=== PATIENT | female | born 1960 | race Caucasian/White ===

== ENCOUNTER → 2017-02-28 | Outpatient (CLI) | payer MEDICARE, MEDICAID ==
[~2017-02-28] MED LIST: /CIPR75TA OR; /DULO30CA OR; /DULO30CA PO; /PANT40TA OR; /PANT40TA PO; ABIL1TAB11 PO; ABIL5TAB OR; ABIL5TAB PO; ACET65TA OR; ACET65TA PO; AMBI10TA PO; ASPI-101 PO; ASPI81TA83 PO; ATIV1TAB2 PO; BABY81CH OR; BACL10TA PO; BACL10TA2 OR; BACL10TA2 PO; BRIV50TA PO; CARA1SUS OR; CHOL4POW4 PO; COPAXONE SQ; COPAXONE SUBQ; CORE12.5 PO; DEPA500T2 PO; ENOX40SY SC; FOSA70TA PO; GLAT1INJ SC; INSUDET SC; INSULANT SC; INSULIN REG SC; INSULIN SQ; LASI40TA PO; LEVO25TA5 PO; LEVO300T21 PO; LEVO50TA2 OR; LIPI10TA PO; LOPR50TA OR; Lioresal PO; MELA5TAB20 PO; METO10TA2 OR; MS C15TA5 PO; MULTIVIT PO; NEUR100C PO; NEUR300C PO; NEUR400C PO; NEUR800T OR; NICO7DIS4 TD; NOVOLOG100 MG/ML SC; NYSTATIN POWDER TOP; PAIN325T PO; PAME10CA PO; PAME50CA OR; PERC5TAB8 OR; PLAV75TA2 OR; PLAV75TA2 PO; PREG50CA PO; PRIL20CA OR; QUESTRAN PO; SIMV20TA2 OR; SYNT100T OR; TRAD5TAB PO; TRAZ50TA OR; TRAZ50TA PO; VIT D 2000 PO; VITA500T OR; ZOCO40TA OR; ZOCO40TA PO; ZOFR20TA PO; albuterol neb INH; humalog insulin SC; lantus insulin SC; levemir SC; maalox OR; melatonin OR; mucinex PO
--- NOTE | 2017-02-28 13:42 | REP ---
BILATERAL UPPER EXTREMITY DUPLEX DOPPLER ULTRASOUND ARTERIES AND DEEP VENOUS SYSTEMS: Real-time compression and duplex Doppler interrogation of bilateral upper extremity deep vein systems is performed. There is no evidence of deep venous thrombosis bilaterally. On the right diameter of the basilic vein at the level of the humerus is 3 mm and at the level of the forearm and wrist is 2 mm, with median cubital vein measuring 2 mm. Diameter of the right cephalic vein at the level of the humerus is 2 mm and at the level of the antecubital region and forearm is 1 mm, 2 mm at the wrist. On the left, diameter of the basilic vein at the humerus and antecubital region is 2 mm, 1 mm in the forearm, median cubital vein is 2 mm. Left cephalic vein measures 2 mm in diameter at the level of the humerus and antecubital region, 1 mm in the forearm. Normal peak systolic velocities are seen in the axillary, brachial, radial and ulnar arteries bilaterally. There is plaquing and narrowing of both radial and ulnar arteries. Triphasic waveforms are seen in the right axillary, brachial and radial arteries with mild phasic waveform in the right ulnar artery. Right axillary artery measures 2 mm, brachial artery 2 mm, radial and ulnar arteries 1 mm in diameter. On the left biphasic waveforms are seen in the axillary and brachial arteries with mild phasic waveforms in the radial and ulnar arteries. Diameter of the left axillary artery is 6 mm, brachial artery 3 mm and radial and ulnar arteries 1 mm. Signed by Adonis Knight MD 02/28/2017 01:57 P
== END ==
LOC: M RAD 10:11
PROVIDERS: ATTEND Surgery Vascular Surgery
DX: N18.6 End stage renal disease (principal); M79.601 Pain in right arm

== ENCOUNTER 2017-03-23 11:49 | Day surgery (SDC) | payer MEDICARE, MEDICAID ==
[~2017-03-23] VITALS: Ht 139.7 cm; Wt 105.7 kg
[~2017-03-23 11:49] MED LIST changes: -METO10TA2 OR; +METO10TA2 PO; +SODIUM CHLORIDE 0.9% INJ 10 ML SYR IV SCH
[2017-03-23] MEDS ORDERED: NS 1,000 ML IV ONE (12:00)
[2017-03-23] MEDS ORDERED: HEPARIN SOD (PORCINE) 5000 UNITS/ML VIAL As Ordered ONE (13:11)
[2017-03-23] MEDS ORDERED: LIDOCAINE 1% SDV INJ 30 ML VIAL As Ordered ONE (13:11)
[2017-03-23] MEDS ORDERED: BUPIVACAINE HCL 0.5% 30 ML VIAL As Ordered ONE (13:12)
[2017-03-23] MEDS ORDERED: fentaNYL 100 MCG/2 ML INJECTION (J3010) As Ordered ONE (13:53)
[2017-03-23] MEDS ORDERED: PROPOFOL 200 MG/20 ML VIAL As Ordered ONE (13:53)
[2017-03-23] MEDS ORDERED: MIDAZOLAM INJ 2 MG/2 ML VIAL (J2250) As Ordered ONE (13:53)
[2017-03-23] MEDS ORDERED: ESMOLOL INJ 100MG/10ML VIAL As Ordered ONE (14:00)
[2017-03-23 15:20] VITALS: BP 201/82
[2017-03-26] MEDS ORDERED: ATOR40TA75 PO (18:37)
[2017-03-26] MEDS ORDERED: INSUHUMDS SC (18:37)
[2017-03-26] MEDS ORDERED: BISA10SU4 PR (18:40)
[2017-03-26] MEDS ORDERED: MILKSUS PO (18:43)
[2017-03-26] MEDS ORDERED: LEVO25TA5 PO (18:43)
[2017-03-26] MEDS ORDERED: GLUC1KIT SC (18:43)
[2017-03-26] MEDS ORDERED: ENEMENE16 PR (18:43)
[2017-03-26] MEDS ORDERED: ASPI81TA24 PO (18:45)
--- NOTE | 2017-04-21 15:35 | RO ---
DATE OF PROCEDURE: 03/23/2017 PREOPERATIVE DIAGNOSIS: Chronic renal insufficiency nearing end-stage renal disease. Full IV access. POSTOPERATIVE DIAGNOSIS: Chronic renal insufficiency nearing end-stage renal disease. Full IV access. PROCEDURE: Access right internal jugular vein Port-A-Cath right brachiocephalic arteriovenous fistula. SURGEON: Dr. Neptali Khan ANGLESMITH: None. ANESTHESIA: Local, monitored anesthesia care (MAC). ESTIMATED BLOOD LOSS: 35 mL. HEPARIN: None. IV FLUIDS: 200 mL. COMPLICATIONS: None. DRAINS: None. SPECIMENS: None. IMPLANTS: None. DESCRIPTION OF PROCEDURE: The patient was taken to the operating room and placed supine on the operating room table and due to poor IV access the right internal jugular vein [id number] was accessed and used for IV access. The right upper extremity was then prepped and draped in a standard surgical fashion. An incision was made at the antecubital fossa transversely exposing the brachial artery and cephalic vein. The cephalic vein was noted to be small and sclerotic, but dilated easily with heparinized saline and had good flow through the vein with injection of heparinized saline. The cephalic vein was then transected as far distal as possible and anastomosed to the brachial artery in an end-to-side fashion using a #6-0 Prolene suture. Hemostasis was obtained after which the incision was closed using #2-0 Vicryl to approximate the thecal layers and #3-0 Monocryl to approximate the skin in a running subcuticular fashion. Steri-Strips and dressings were applied. Patient tolerated the procedure well. All instrument, sponge, and needle counts were correct at the end of the case. There were no complications. Dr. Khan was present for and directed the entire case. Patient was transferred to the holding area and patient was discharged to home after being transferred to the recovery room.
== END 2017-03-23 15:35 | disposition home or self-care (01) ==
LOC: M SDC 11:49
PROVIDERS: ATTEND Surgery Vascular Surgery
DX: N18.9 Chronic kidney disease, unspecified (principal); E03.9 Hypothyroidism, unspecified; I12.9 Hypertensive chronic kidney disease with stage 1 through stage 4 chronic kidney disease, or unspecified chronic kidney disease; G35 Multiple sclerosis; E11.22 Type 2 diabetes mellitus with diabetic chronic kidney disease; I25.10 Atherosclerotic heart disease of native coronary artery without angina pectoris; I25.2 Old myocardial infarction; K50.90 Crohn's disease, unspecified, without complications; K21.9 Gastro-esophageal reflux disease without esophagitis; C91.10 Chronic lymphocytic leukemia of B-cell type not having achieved remission; K31.84 Gastroparesis; R29.898 Other symptoms and signs involving the musculoskeletal system; F41.9 Anxiety disorder, unspecified; F32.9 Major depressive disorder, single episode, unspecified; G54.6 Phantom limb syndrome with pain; R06.83 Snoring; G47.33 Obstructive sleep apnea (adult) (pediatric); H26.9 Unspecified cataract; Z88.8 Allergy status to other drugs, medicaments and biological substances; Z91.048 Other nonmedicinal substance allergy status; Z79.899 Other long term (current) drug therapy; Z79.82 Long term (current) use of aspirin; Z79.4 Long term (current) use of insulin; Z95.5 Presence of coronary angioplasty implant and graft; Z86.14 Personal history of Methicillin resistant Staphylococcus aureus infection; Z78.0 Asymptomatic menopausal state; Z87.891 Personal history of nicotine dependence; Z98.51 Tubal ligation status; Z96.653 Presence of artificial knee joint, bilateral; Z87.440 Personal history of urinary (tract) infections
CPT/HCPCS: 36821; 84132; J2250; J3010

== ENCOUNTER 2017-03-26 12:05 | Observation (INO) | payer MEDICARE, MEDICAID ==
[2017-03-26] MEDS: PIPERACILLIN/TAZOBACTAM SOD 3.375 GM in APPROPRIATE DILUENT 1 EA IV (20:59)
[2017-03-26] MEDS: SODIUM CHLORIDE 0.9% INJ 10 ML SYR IV ×2 (22:16)
[2017-03-26] MEDS: NORCO, ANEXSIA 5/325MG TABLET (HYDROcodone/ACETAMINOPHEN) PO ×2 (23:02)
[2017-03-27] MEDS: PIPERACILLIN/TAZOBACTAM SOD 3.375 GM in APPROPRIATE DILUENT 1 EA IV ×3 (03:38→21:19)
[2017-03-27] MEDS: SODIUM CHLORIDE 0.9% INJ 10 ML SYR IV ×2 (05:09)
[2017-03-27] MEDS ORDERED: GLUCAGON FOR INJ 1 MG VIAL (J1610) SC ×4 (06:15→08:15)
[2017-03-27] MEDS ORDERED: DEXTROSE 50% 50 ML SYRINGE IV ×2 (06:15)
[2017-03-27] MEDS ORDERED: GLUCOSE 4 GM CHEW TABLET PO ×2 (06:15)
[2017-03-27] MEDS: HumaLOG INSULIN (NovoLOG) PER UNIT SC ×8 (07:30→21:00)
[2017-03-27] MEDS ORDERED: BISACODYL 10 MG SUPP PR ×2 (08:15)
[2017-03-27] MEDS ORDERED: FLEET ENEMA PR ×2 (08:15)
[2017-03-27] MEDS ORDERED: MOM 30ML SUSPENSION UDC PO ×2 (08:15)
[2017-03-27] MEDS: LEVEMIR (INSULIN DETEMIR) 1 UNITS/0.01ML SC ×2 (09:00)
[2017-03-27] MEDS: ATORVASTATIN 20 MG TAB PO ×2 (09:25)
[2017-03-27] MEDS: DIVALPROEX 500MG *ER* TAB PO ×6 (09:25→21:38)
[2017-03-27] MEDS: CARVedilol 12.5 MG TAB PO ×4 (09:25→21:39)
[2017-03-27] MEDS: LEVOTHYROXINE 25MCG TABLET (0.025MG) PO ×2 (09:26)
[2017-03-27] MEDS: CHOLESTYRAMINE 4 GM PWD PKT PO ×4 (09:26→21:38)
[2017-03-27] MEDS: LEVOTHYROXINE 150MCG TABLET (0.15MG) PO ×2 (09:26)
[2017-03-27] MEDS: ASPIRIN 81 MG ENTERIC TAB PO ×2 (09:26)
[2017-03-27] MEDS: NORCO, ANEXSIA 5/325MG TABLET (HYDROcodone/ACETAMINOPHEN) PO ×4 (09:26→21:42)
[2017-03-27] MEDS: NORTRIPTYLINE 10 MG CAP PO ×4 (09:35→21:39)
[2017-03-27] MEDS: GLATIRAMER 20 MG/1 ML SC ×2 (09:35)
[2017-03-27] MEDS: METOCLOPRAMIDE 10 MG TAB PO ×6 (11:55→21:38)
[2017-03-27] MEDS ORDERED: HumaLOG INSULIN (NovoLOG) PER UNIT SC ×2 (12:00)
[2017-03-28] MEDS: PIPERACILLIN/TAZOBACTAM SOD 3.375 GM in APPROPRIATE DILUENT 1 EA IV ×3 (05:08→21:28)
[2017-03-28] MEDS: LEVOTHYROXINE 150MCG TABLET (0.15MG) PO ×2 (05:58)
[2017-03-28] MEDS: LEVOTHYROXINE 25MCG TABLET (0.025MG) PO ×2 (05:58)
[2017-03-28] MEDS: HumaLOG INSULIN (NovoLOG) PER UNIT SC ×8 (08:58→21:24)
[2017-03-28] MEDS: CHOLESTYRAMINE 4 GM PWD PKT PO ×4 (08:58→21:23)
[2017-03-28] MEDS: GLATIRAMER 20 MG/1 ML SC ×2 (08:58)
[2017-03-28] MEDS: CARVedilol 12.5 MG TAB PO ×4 (08:59→21:23)
[2017-03-28] MEDS: ATORVASTATIN 20 MG TAB PO ×2 (08:59)
[2017-03-28] MEDS: NORTRIPTYLINE 10 MG CAP PO ×4 (08:59→21:22)
[2017-03-28] MEDS: METOCLOPRAMIDE 10 MG TAB PO ×8 (09:00→21:22)
[2017-03-28] MEDS: ASPIRIN 81 MG ENTERIC TAB PO ×2 (09:00)
[2017-03-28] MEDS: DIVALPROEX 500MG *ER* TAB PO ×6 (09:00→21:23)
[2017-03-28] MEDS: LEVEMIR (INSULIN DETEMIR) 1 UNITS/0.01ML SC ×2 (09:01)
[2017-03-28] MEDS: NORCO, ANEXSIA 5/325MG TABLET (HYDROcodone/ACETAMINOPHEN) PO ×2 (22:16)
[2017-03-29] MEDS: PIPERACILLIN/TAZOBACTAM SOD 3.375 GM in APPROPRIATE DILUENT 1 EA IV (04:06)
[2017-03-29] MEDS: LEVOTHYROXINE 150MCG TABLET (0.15MG) PO ×2 (05:44)
[2017-03-29] MEDS: LEVOTHYROXINE 25MCG TABLET (0.025MG) PO ×2 (05:44)
[2017-03-29] MEDS: METOCLOPRAMIDE 10 MG TAB PO ×2 (07:49)
[2017-03-29] MEDS: HumaLOG INSULIN (NovoLOG) PER UNIT SC ×2 (07:49)
[2017-03-29] MEDS: ATORVASTATIN 20 MG TAB PO ×2 (08:28)
[2017-03-29] MEDS: CHOLESTYRAMINE 4 GM PWD PKT PO ×2 (08:29)
[2017-03-29] MEDS: ASPIRIN 81 MG ENTERIC TAB PO ×2 (08:29)
[2017-03-29] MEDS: DIVALPROEX 500MG *ER* TAB PO ×2 (08:29)
[2017-03-29] MEDS: NORTRIPTYLINE 10 MG CAP PO ×2 (08:35)
[2017-03-29] MEDS: CARVedilol 12.5 MG TAB PO ×2 (08:35)
[2017-03-29] MEDS: LEVEMIR (INSULIN DETEMIR) 1 UNITS/0.01ML SC ×2 (08:36)
[2017-03-29] MEDS: GLATIRAMER 20 MG/1 ML SC ×2 (08:37)
[2017-03-29] MEDS: SODIUM CHLORIDE 0.9% INJ 10 ML SYR IV ×2 (08:37)
== END 2017-03-29 09:00 ==
LOC: M ED 12:05 → M ED INP 18:01 → M MSPAV 19:34
DX: N18.9 Chronic kidney disease, unspecified (principal); M79.602 Pain in left arm; T85.868A Thrombosis due to other internal prosthetic devices, implants and grafts, initial encounter; Y83.2 Surgical operation with anastomosis, bypass or graft as the cause of abnormal reaction of the patient, or of later complication, without mention of misadventure at the time of the procedure; Z79.899 Other long term (current) drug therapy; Z79.4 Long term (current) use of insulin; Z79.82 Long term (current) use of aspirin; Z88.8 Allergy status to other drugs, medicaments and biological substances; Z91.048 Other nonmedicinal substance allergy status
CPT/HCPCS: 96365

== ENCOUNTER → 2017-04-12 | Outpatient (CLI) | payer MEDICARE, MEDICAID ==
[~2017-04-12] MED LIST changes: +ASPI81TA24 PO; +ATOR40TA75 PO; +BISA10SU4 PR; +ENEMENE16 PR; +GLUC1KIT SC; +INSUHUMDS SC; +MIDAZOLAM INJ 2 MG/2 ML VIAL (J2250) As Ordered ONE; +MILKSUS PO; -SODIUM CHLORIDE 0.9% INJ 10 ML SYR IV SCH; +fentaNYL 100 MCG/2 ML INJECTION (J3010) As Ordered ONE
--- NOTE | 2017-04-20 17:42 | REPIR ---
DATE OF PROCEDURE: 04/12/2017 PREPROCEDURE DIAGNOSES: Chronic renal insufficiency nearing endstage renal disease. POSTPROCEDURE DIAGNOSES: Chronic renal insufficiency nearing endstage renal disease. PROCEDURE: Left brachiocephalic arteriovenous fistulagram, retrograde right brachial artery angiogram, right cephalic vein recanalization and angioplasty with a 3 x 100 balloon. SURGEON: Dr. Neptali Khan. HOT BOX CHECKER: Marquita Cerda ANESTHESIA: Local. FLUOROSCOPIC TIME: 2.22 minutes. CONTRAST: 1 mL Heparin. COMPLICATION: None. DRAINS: None. SPECIMENS: None. IMPLANTS: None. INDICATION: The patient is a 56-year-old female who underwent creation of a right brachiocephalic arteriovenous fistula with the fistula being pulsatile and concern for thrombosis and loss of the fistula. The patient will undergo a fistulagram with possible angioplasty and or a stent. Risks, benefits and alternative treatment options were discussed with the patient. DESCRIPTION OF PROCEDURE: The patient was taken to the angiography suite and placed supine on the angiography room table and the right upper extremity was prepped and draped in the standard surgical fashion. The fistula was cannulated and a fistulagram was performed showing occlusion of the cephalic just above the translocation portion at the antecubital fossa. This was recannulized with a wire and then this was angioplastied with a 3 x 100 balloon with a followup fistulogram showing resolution of the occlusion and good flow in the fistula. A retrograde right brachial artery angiogram was performed during inflation of the balloon showing no intervention required. Catheter and wires were removed. The sheath was removed and the 2-0 Prolene suture was placed for hemostasis. Dressings were then applied. Patient tolerated the procedure well. All instrument, sponge and needle counts were correct at the end of the case. There were no complications. Dr. Khan was present for and directed the entire case. The patient was transferred to [facility] and subsequently discharged in stable condition. RADIOLOGIC SUPERVISION INTERPRETATION: The initial fistulogram showed occlusion of the cephalic vein which was recannulized and an angioplasty with a 3x 100 balloon with good flow noted on followup fistulogram. The retrograde brachial artery angiogram showed no intervention was required.
== END | disposition home or self-care (01) ==
LOC: M IRPRO 12:12
PROVIDERS: ATTEND Surgery Vascular Surgery
DX: T82.898A Other specified complication of vascular prosthetic devices, implants and grafts, initial encounter (principal); N18.9 Chronic kidney disease, unspecified
CPT/HCPCS: 36902; C1725; C1769; C1894

== ENCOUNTER → 2017-04-22 | Outpatient (CLI) | payer MEDICARE, MEDICAID ==
[~2017-04-22] MED LIST changes: -/CIPR75TA OR; -/DULO30CA OR; -/DULO30CA PO; -/PANT40TA OR; -/PANT40TA PO; -ABIL1TAB11 PO; -ABIL5TAB OR; -ABIL5TAB PO; -ACET65TA OR; -ACET65TA PO; -AMBI10TA PO; -ASPI-101 PO; -ASPI81TA24 PO; -ASPI81TA83 PO; -ATIV1TAB2 PO; -ATOR40TA75 PO; -BABY81CH OR; -BACL10TA PO; -BACL10TA2 OR; -BACL10TA2 PO; -BISA10SU4 PR; -BRIV50TA PO; -CARA1SUS OR; -CHOL4POW4 PO; -COPAXONE SQ; -COPAXONE SUBQ; -CORE12.5 PO; -DEPA500T2 PO; -ENEMENE16 PR; -ENOX40SY SC; -FOSA70TA PO; -GLAT1INJ SC; -GLUC1KIT SC; -INSUDET SC; -INSUHUMDS SC; -INSULANT SC; -INSULIN REG SC; -INSULIN SQ; -LASI40TA PO; -LEVO25TA5 PO; -LEVO300T21 PO; -LEVO50TA2 OR; +LIDOCAINE 1% MDV 20ML VIAL As Ordered; -LIPI10TA PO; -LOPR50TA OR; -Lioresal PO; -MELA5TAB20 PO; -METO10TA2 PO; -MIDAZOLAM INJ 2 MG/2 ML VIAL (J2250) As Ordered ONE; -MILKSUS PO; -MS C15TA5 PO; -MULTIVIT PO; -NEUR100C PO; -NEUR300C PO; -NEUR400C PO; -NEUR800T OR; -NICO7DIS4 TD; -NOVOLOG100 MG/ML SC; -NYSTATIN POWDER TOP; -PAIN325T PO; -PAME10CA PO; -PAME50CA OR; -PERC5TAB8 OR; -PLAV75TA2 OR; -PLAV75TA2 PO; -PREG50CA PO; -PRIL20CA OR; -QUESTRAN PO; -SIMV20TA2 OR; -SYNT100T OR; -TRAD5TAB PO; -TRAZ50TA OR; -TRAZ50TA PO; -VIT D 2000 PO; -VITA500T OR; -ZOCO40TA OR; -ZOCO40TA PO; -ZOFR20TA PO; -albuterol neb INH; -fentaNYL 100 MCG/2 ML INJECTION (J3010) As Ordered ONE; -humalog insulin SC; -lantus insulin SC; -levemir SC; -maalox OR; -melatonin OR; -mucinex PO
== END ==
LOC: M RADPRO 10:46
DX: R92.0 Mammographic microcalcification found on diagnostic imaging of breast (principal); Z88.8 Allergy status to other drugs, medicaments and biological substances; Z88.1 Allergy status to other antibiotic agents; Z91.048 Other nonmedicinal substance allergy status; Z79.82 Long term (current) use of aspirin; Z79.899 Other long term (current) drug therapy
CPT/HCPCS: 19083

== ENCOUNTER → 2017-06-02 | Outpatient (CLI) | payer MEDICARE, MEDICAID ==
[~2017-06-02] MED LIST changes: +ISOVUE-300 61% 50ML VIAL (Q9967) As Ordered; -LIDOCAINE 1% MDV 20ML VIAL As Ordered
== END | disposition home or self-care (01) ==
LOC: M IRPRO 10:33
DX: T82.868A Thrombosis due to vascular prosthetic devices, implants and grafts, initial encounter (principal); I12.0 Hypertensive chronic kidney disease with stage 5 chronic kidney disease or end stage renal disease; N18.6 End stage renal disease; E11.22 Type 2 diabetes mellitus with diabetic chronic kidney disease; I25.10 Atherosclerotic heart disease of native coronary artery without angina pectoris; Z72.0 Tobacco use; G35 Multiple sclerosis
CPT/HCPCS: 36901